=== PATIENT | female | born 1995 | race Caucasian/White ===

== ENCOUNTER 2017-01-18 19:45 | Emergency (ER) | payer SELFPAY ==
[~2017-01-18] VITALS: Ht 160 cm; Wt 113.2 kg
[~2017-01-18 19:45] MED LIST: AMOXICILLIN875 MG PO; FLEXERIL10 MG PO; IBUPROFEN800 MG PO; KEFLEX500 MG PO; LEVAQUIN500 MG PO; MIRALAX255 GM PO; MOTRIN600 MG PO; MOTRIN800 MG PO; NAPROSYN375 MG PO; NAPROSYN500 MG PO; OMEPRAZOLE40 M1 PO; PYRIDIUM200 MG PO; ROBITUSSIN AC,T10 ML PO; ULTRAM50 MG PO; ZITHROMAX500 MG PO; ZOFRAN ODT4 MG PO; ZOFRAN ODT8 MG PO; ZOFRAN4 MG PO
[2017-01-18 20:17] LABS: MCH 28.5 PG (29.0-34.0); MCHC 33.8 G/DL (30.0-36.0); MCV 84.5 FL (83-99); MEAN PLAT.VOLUME 10.8 uM^3 (9.5-12.4); PLATELET COUNT 309 K/uL (156-360); RBC DIS.WIDTH-CV 14.7 % (11.8-14.6); RBC DIS.WIDTH-SD 45.4 % (39-53); RED BLOOD COUNT 5.68 M/uL (3.80-5.20); WHITE BLOOD COUNT 18.4 K/uL (4.1-10.2)
[2017-01-18 20:26] LABS: CHLORIDE 109 mEq/L (99-109); POTASSIUM 3.9 mEq/L (3.7-5.4); SODIUM 141 mEq/L (136-147)
[2017-01-18 20:27] LABS: GLUCOSE 107 mg/dL (70-99)
[2017-01-18 20:29] LABS: ANION GAP 10 MEQ/L (2-14)
[2017-01-18 20:31] LABS: GFR ESTIMATE (CALCULATED) > 59 mL/min/; SERUM ETHYL ALCOHOL < 10 mg/dL
[2017-01-18 20:32] LABS: UREA NITROGEN (BUN) 9 mg/dL (9-23)
[2017-01-18 20:37] LABS: AMPHETAMINE NEGATIVE (500 ng/mL); BARBITURATES NEGATIVE (200 ng/mL); BENZODIAZEPINES NEGATIVE (150 ng/mL); COCAINE NEGATIVE (150 ng/mL); INTERNAL CONTROLS VALID? YES; METHADONE NEGATIVE (200 ng/mL); METHAMPHETAMINE NEGATIVE (500 ng/mL); OPIATES (MORPHINE) NEGATIVE (100 ng/mL); OXYCODONE NEGATIVE (100 ng/mL); PHENCYCLIDINE NEGATIVE (25 ng/mL); PROPOXYPHENE NEGATIVE (300 ng/mL); THC CANNABINOIDS PRESUMPTIVE POSITIVE (50 ng/mL); TRICYCLIC ANTIDEPRESSANTS NEGATIVE (300 ng/mL)
[2017-01-18 20:38] LABS: ADD MEDTOX COMMENT Y
[2017-01-18 21:57] LABS: ADD MIUA? YES; BILIRUBIN NEGATIVE; BLOOD NEGATIVE; COLOR YELLOW ((YELLOW)); GLUCOSE (STRIP) NEGATIVE; KETONES 20; LEUKOCYTES TRACE; NITRITE NEGATIVE; PROTEIN (STRIP) 30; SPECIFIC GRAVITY 1.025 (1.000-1.030)
[2017-01-18 22:07] LABS: BACTERIA RARE /HPF; EPITHELIAL CELLS 1+ /HPF; MUCUS 1+ /LPF
[2017-01-19 02:09] LABS: INTERNAL CONTROL VALID? YES
[2017-01-19 02:19] VITALS: BP 101/62
== END 2017-01-19 02:20 ==
LOC: EME 19:45
DX: F34.1 Dysthymic disorder (principal); F41.9 Anxiety disorder, unspecified; Z87.891 Personal history of nicotine dependence; Z59.0 Homelessness
CPT/HCPCS: 80048; 81003; 84703; 84999; 85027; 90837; 99281; 99285; G0480

== ENCOUNTER 2017-02-13 15:26 | Inpatient (IN) | payer OTHER ==
[~2017-02-13] VITALS: Ht 160 cm; Wt 107.2 kg
[2017-02-13] MEDS ORDERED: FLUOXETINE HCL20 MG PO (20:03)
[2017-02-13] MEDS ORDERED: TRAZODONE HCL100 MG PO (20:04)
[2017-02-13] MEDS ORDERED: ATARAX,VISTARIL50 MG PO (20:04)
[2017-02-13 21:19] LABS: BASOPHIL COUNT 0.1 K/uL (0-0.1); EOSINOPHIL COUNT 0.1 K/uL (0-0.3); HEMATOCRIT 45.9 % (36.0-46.0); IMMATURE GRANULOCYTE (%) 0.3 % (0.0-0.7); INSTRUMENT ABS NEUTROPHIL CT 6.5 K/uL; LYMPHOCYTE COUNT 2.4 K/uL (1.0-2.8); MCH 27.9 PG (29.0-34.0); MCHC 32.5 G/DL (30.0-36.0); MONOCYTE (%) 7.4 % (3-12); MONOCYTE COUNT 0.7 K/uL (0-0.8); NEUTROPHIL (%) 66.3 % (45-76); NEUTROPHIL COUNT 6.5 K/uL (1.8-6.4); PLATELET COUNT 268 K/uL (156-360); RBC DIS.WIDTH-CV 14.6 % (11.8-14.6); RBC DIS.WIDTH-SD 46.5 % (39-53); RED BLOOD COUNT 5.34 M/uL (3.80-5.20)
[2017-02-13 21:22] LABS: WHITE BLOOD COUNT 9.8 K/uL (4.1-10.2)
[2017-02-13 21:31] LABS: CHLORIDE 109 mEq/L (99-109); POTASSIUM 3.9 mEq/L (3.7-5.4); SODIUM 141 mEq/L (136-147)
[2017-02-13 21:33] LABS: GLUCOSE 106 mg/dL (70-99)
[2017-02-13 21:35] LABS: ANION GAP 7 MEQ/L (2-14); TOTAL BILIRUBIN 0.4 mg/dL (0.0-1.0)
[2017-02-13 21:36] LABS: SERUM ETHYL ALCOHOL < 10 mg/dL
[2017-02-13 21:37] LABS: ALKALINE PHOSPHATASE 57 IU/L (3-129); GFR ESTIMATE (CALCULATED) > 59 mL/min/
[2017-02-13 21:38] LABS: UREA NITROGEN (BUN) 5 mg/dL (9-23)
[2017-02-13 21:46] LABS: AMPHETAMINE NEGATIVE (500 ng/mL); BARBITURATES NEGATIVE (200 ng/mL); BENZODIAZEPINES NEGATIVE (150 ng/mL); COCAINE NEGATIVE (150 ng/mL); INTERNAL CONTROLS VALID? YES; METHADONE NEGATIVE (200 ng/mL); METHAMPHETAMINE NEGATIVE (500 ng/mL); OPIATES (MORPHINE) NEGATIVE (100 ng/mL); OXYCODONE NEGATIVE (100 ng/mL); PHENCYCLIDINE NEGATIVE (25 ng/mL); PROPOXYPHENE NEGATIVE (300 ng/mL); THC CANNABINOIDS PRESUMPTIVE POSITIVE (50 ng/mL); TRICYCLIC ANTIDEPRESSANTS NEGATIVE (300 ng/mL)
[2017-02-13 21:47] LABS: ADD MEDTOX COMMENT Y
[2017-02-13 21:49] LABS: QUANTITATIVE HCG < 4.0 MIU/ML
[2017-02-14 01:05] VITALS: BP 131/81
[2017-02-14 07:45] VITALS: BP 110/54
[2017-02-14 15:25] VITALS: BP 112/61
[2017-02-15 07:48] VITALS: BP 112/56
== END 2017-02-15 13:15 | disposition home or self-care (01) | DRG 885 ==
LOC: EME 15:26 → EDOF 21:48 → 1WEST 21:48
PROVIDERS: Emergency Medicine
DX: F33.9 Major depressive disorder, recurrent, unspecified (principal); T43.502A Poisoning by unspecified antipsychotics and neuroleptics, intentional self-harm, initial encounter; F60.3 Borderline personality disorder; F11.10 Opioid abuse, uncomplicated; F12.10 Cannabis abuse, uncomplicated; E66.3 Overweight; Z68.41 Body mass index [BMI] 40.0-44.9, adult; Z87.891 Personal history of nicotine dependence
CPT/HCPCS: 80053; 84702; 84999; 85025; 90839; 97150 GO; 97165 GO; 99281; 99285; G0480